=== PATIENT | female | born 1940 | race Caucasian/White ===

== ENCOUNTER 2020-01-25 09:21 | Inpatient (IN) | payer OTHER, MEDICAID ==
[~2020-01-25] VITALS: Ht 160 cm; Wt 51.3 kg
[2020-01-25] MEDS ORDERED: DULCOLAX STOOL100 M1 PO (09:31)
[2020-01-25] MEDS ORDERED: ARICEPT10 M1 PO (09:31)
[2020-01-25] MEDS ORDERED: ATIVAN0.5 M1 PO (09:31)
[2020-01-25] MEDS ORDERED: NORVASC5 M1 PO (09:31)
[2020-01-25] MEDS ORDERED: MILK OF MA400 MG/5 M PO (09:32)
[2020-01-25] MEDS ORDERED: MEMANTINE HCL E28 MG PO (09:32)
[2020-01-25] MEDS ORDERED: OLANZAPINE ODT5 MG PO (09:33)
[2020-01-25] MEDS ORDERED: TYLENOL325 M1 PO (09:34)
[2020-01-25] MEDS ORDERED: MELATONIN3 M1 PO (09:34)
[2020-01-25 09:58] LABS: ABSOLUTE EOSINOPHILS 0.2 thou/uL (0.0-0.7); ABSOLUTE LYMPHOCYTES 1.3 thou/uL (0.8-5.3); ABSOLUTE MONOCYTES 0.6 thou/uL (0.0-1.2); ABSOLUTE NEUTROPHILS 4.4 thou/uL (1.6-8.1); BASOPHILS 0.4 %; EOSINOPHILS 3.3 %; HEMOGLOBIN 12.7 gm/dL (12.0-15.0); LYMPHOCYTES 19.9 %; MCH 29.7 pg (26.0-34.0); MCHC 34.3 g/dL (28.0-37.0); MCV 86.8 fL (80.0-100.0); MONOCYTES 8.7 %; MPV 7.8 fl. (7.2-11.1); NUCLEATED RBCS 0 /100WBC; PLATELET COUNT* 219 thou/uL (150-400); POLYS 67.7 %; RBC 4.26 mil/uL (4.20-5.00); RDW-CV 13.8 % (10.5-14.5); WBC 6.5 thou/uL (4.0-11.0)
[2020-01-25 10:00] LABS: CALCIUM 8.5 mg/dL (8.5-10.1); POTASSIUM 3.9 mmol/L (3.5-5.1)
[2020-01-25 10:01] LABS: PROTIME 10.4 Seconds (9.20-11.50)
[2020-01-25 10:06] LABS: ALBUMIN 3.1 g/dL (3.4-5.0); TOTAL BILIRUBIN 0.4 mg/dL (<0.1-1.0); TOTAL PROTEIN 7.1 g/dL (6.4-8.2)
[2020-01-25 10:07] LABS: URINE BILIRUBIN NEGATIVE (Negative); URINE BLOOD 3+ (Negative); URINE CLARITY CLEAR; URINE COLOR YELLOW; URINE GLUCOSE-RANDOM NEGATIVE (Negative); URINE KETONES NEGATIVE (Negative); URINE LEUKOCYTES-REFLEX TRACE (Negative); URINE NITRITE-REFLEX POSITIVE (Negative); URINE PROTEIN NEGATIVE (Negative); URINE SPECIFIC GRAVITY 1.015 (1.005-1.030); URINE UROBILINOGEN 0.2 E.U./dl (0.2-1.0)
[2020-01-25 10:13] LABS: SQUAMOUS 0-3 Few /LPF (0-3); URINE RBC 0-2 Rare /HPF (0-2); URINE WBC-REFLEX 6-15 Few /HPF (0-5)
[2020-01-25 10:14] LABS: BACTERIA-REFLEX >30 Many /HPF (None Seen); CASTS None Seen /LPF (None Seen); CRYSTALS None Seen /LPF (None Seen); MUCUS 0-3 Light strn/LPF (None Seen)
[2020-01-25 12:27] VITALS: BP 160/70
[2020-01-25 12:45] VITALS: BP 141/48
--- NOTE | 2020-01-25 16:05 | EKG ---
[place] [address] ELECTROCARDIOGRAM REPORT Name: SILVIO MCCAINLEE Room: [address] ADM IN M.R.#: [id number] Admission: 01/25/20 Attend Phys: Trey Antoine, Discharge: Date of : 36 Date of Service: 01/25/20 0933 Report #: [id number] THIS REPORT FOR: //name// [facility] ED Test Date: 2020-01-25 Test Time: 09:33:32 Pat Name: NIXON MCCAIN Department: Room: [facility] Gender: F Video And Sound Recorder: DSL : 1940 Requested By: Brody Wilhelm Order Number: [id number] MD: Tacho Smith Measurements Intervals [place] Rate: 89 P: 43 WA: 161 QRS: -41 QRSD: 83 T: 52 QT: 378 QTc: 460 Interpretive Statements Sinus rhythm Left axis deviation Anteroseptal infarct, age indeterminate possible No previous ECG available for comparison Electronically Signed On 01-25-2020 16:05:30 CDT by Tacho Smith [email or web address] <ELECTRONICALLY SIGNED> By: Tacho Smith MD, [facility] 01/25/20 1605 0933 0933 Tacho Smith MD, [facility] /EPI
[2020-01-25 16:26] VITALS: BP 143/68
[2020-01-25 20:00] VITALS: BP 129/60
[2020-01-26] VITALS: BP 109/64
[2020-01-26 04:00] VITALS: BP 96/47
[2020-01-26] MEDS ORDERED: BISACODYL10 MG RECTAL (04:58)
[2020-01-26] MEDS ORDERED: PROCTOSOL-HC28.35 GM TOP (05:00)
[2020-01-26 05:59] LABS: ABSOLUTE EOSINOPHILS 0.1 thou/uL (0.0-0.7); ABSOLUTE LYMPHOCYTES 1.1 thou/uL (0.8-5.3); ABSOLUTE MONOCYTES 0.6 thou/uL (0.0-1.2); ABSOLUTE NEUTROPHILS 3.2 thou/uL (1.6-8.1); BASOPHILS 0.5 %; EOSINOPHILS 2.5 %; HEMATOCRIT 37.9 % (37.0-47.0); LYMPHOCYTES 22.5 %; MCH 29.4 pg (26.0-34.0); MCHC 34.2 g/dL (28.0-37.0); MCV 85.9 fL (80.0-100.0); MONOCYTES 11.1 %; MPV 8.1 fl. (7.2-11.1); NUCLEATED RBCS 0 /100WBC; PLATELET COUNT* 235 thou/uL (150-400); POLYS 63.4 %; RBC 4.41 mil/uL (4.20-5.00)
[2020-01-26 06:09] LABS: CALCIUM 8.6 mg/dL (8.5-10.1); CREATININE 1.1 mg/dL (0.6-1.3); POTASSIUM 4.1 mmol/L (3.5-5.1)
[2020-01-26 08:00] VITALS: BP 106/41
[2020-01-26 12:14] VITALS: BP 105/55
[2020-01-26 16:07] VITALS: BP 119/69
[2020-01-27] VITALS: BP 104/48
[2020-01-27 04:00] VITALS: BP 108/37
[2020-01-27 04:59] LABS: CALCIUM 8.6 mg/dL (8.5-10.1); CREATININE 1.1 mg/dL (0.6-1.3); MAGNESIUM 2.5 mg/dL (1.8-2.4); PHOSPHORUS* 4.3 mg/dL (2.5-4.9); POTASSIUM 3.6 mmol/L (3.5-5.1)
[2020-01-27 08:00] VITALS: BP 111/43
[2020-01-27 12:54] VITALS: BP 140/57
[2020-01-27 17:02] VITALS: BP 139/53
[2020-01-27 20:30] VITALS: BP 118/48
[2020-01-28] VITALS: BP 138/63
[2020-01-28 04:00] VITALS: BP 146/49
[2020-01-28 04:52] LABS: ABSOLUTE EOSINOPHILS 0.1 thou/uL (0.0-0.7); ABSOLUTE LYMPHOCYTES 1.6 thou/uL (0.8-5.3); ABSOLUTE MONOCYTES 0.5 thou/uL (0.0-1.2); ABSOLUTE NEUTROPHILS 3.1 thou/uL (1.6-8.1); BASOPHILS 0.5 %; EOSINOPHILS 2.3 %; HEMATOCRIT 38.8 % (37.0-47.0); HEMOGLOBIN 13.1 gm/dL (12.0-15.0); LYMPHOCYTES 29.5 %; MCH 29.3 pg (26.0-34.0); MCHC 33.7 g/dL (28.0-37.0); MONOCYTES 8.9 %; MPV 8.2 fl. (7.2-11.1); NUCLEATED RBCS 0 /100WBC; PLATELET COUNT* 261 thou/uL (150-400); POLYS 58.8 %; RBC 4.46 mil/uL (4.20-5.00); RDW-CV 13.5 % (10.5-14.5); WBC 5.3 thou/uL (4.0-11.0)
[2020-01-28 05:07] LABS: ALBUMIN 3.2 g/dL (3.4-5.0); CALCIUM 8.8 mg/dL (8.5-10.1); CALCIUM 8.9 mg/dL (8.5-10.1); CREATININE 0.9 mg/dL (0.6-1.3); MAGNESIUM 2.3 mg/dL (1.8-2.4); PHOSPHORUS* 3.3 mg/dL (2.5-4.9); POTASSIUM 3.8 mmol/L (3.5-5.1); POTASSIUM 3.9 mmol/L (3.5-5.1); TOTAL BILIRUBIN 0.5 mg/dL (<0.1-1.0); TOTAL PROTEIN 7.3 g/dL (6.4-8.2)
[2020-01-28 08:00] VITALS: BP 136/56
[2020-01-28 16:45] VITALS: BP 134/61
[2020-01-28 22:00] VITALS: BP 138/43
[2020-01-29 04:00] VITALS: BP 113/49
[2020-01-29 08:00] VITALS: BP 138/47
[2020-01-29 12:00] VITALS: BP 144/53
[2020-01-29] MEDS ORDERED: CEFUROXIME250 MG PO (12:29)
--- NOTE | 2020-01-29 12:56 | EKG ---
[place] [address] ELECTROCARDIOGRAM REPORT Name: NIXON MCCAIN Room: [address] ADM IN M.R.#: [id number] Admission: 01/25/20 Attend Phys: Trey Antoine, Discharge: Date of : 36 Date of Service: 01/28/20 1532 Report #: [id number] THIS REPORT FOR: //name// [facility] Test Date: 2020-01-28 Test Time: 15:32:46 Pat Name: NIXON MCCAIN Department: Room: [address] Gender: F Tray Packer: : 1940 Requested By: Amber Dawson Order Number: [id number] Arlene MD: Randy Jose Measurements Intervals [place] Rate: 91 P: 11 AL: 130 QRS: -41 QRSD: 96 T: 74 QT: 371 QTc: 457 Interpretive Statements Sinus rhythm artifact noted Ventricular premature complex Left axis deviation Abnormal R-wave progression, early transition Borderline T wave abnormalities Compared to ECG 01/25/2020 09:33:32 Ventricular premature complex(es) now present Electronically Signed On 01-29-2020 12:56:27 CDT by Randy Jose [email or web address] <ELECTRONICALLY SIGNED> By: Randy Jose MD, [facility] 01/29/20 1256 1532 1532 Randy Jose MD, [facility] /EPI
[2020-01-29 14:13] VITALS: BP 144/53
--- NOTE | 2020-01-31 12:06 | PATH ---
[address] [address] PATHOLOGY RPT PROCEDURE Name: NIXON HINDS Room: [address] IN M.R.#: [id number] Admission: 01/25/20 Date of : 36 Discharge: 01/29/20 Report #: [id number] Path Case #: [id number] [facility] Accession Number: [id number] . 01 Material submitted: . rectum - BIOPSY OF RECTAL MASS AT 10CM . 01 Clinician provided ICD-10: K92.2 G93.41 . 02 Diagnosis: Biopsy of rectal mass at 10 cm: - Tubular adenoma, negative for high grade dysplasia. See comment. LBQ 01/30/2020 1546 Local . 02 Comment: Reviewed with Dr. Shameka Corado who agrees with the diagnosis. (FIONA/db; 01/30/2020) . 02 Electronically signed: . Eliseo Hall MD, Pathologist NPI- [id number] . 01 Gross description: . The specimen is received in formalin, labeled "Nixon Hinds, biopsy of rectal mass at 10 cm" and consists of multiple fragments of schneider tissue measuring 1.4 x 0.5 x 0.2 cm in aggregate which are entirely submitted in A1. ([facility]; 01/29/2020) JFQ/JFQ 01/29/20207 Local . 02 Pathologist provided ICD-10: D12.8 . 02 CPT . 675152 Specimen Comment: A courtesy copy of this report has been sent to [phone] Specimen Comment: [phone], Specimen Comment: Report sent to ,DR MCLEOD / DR CARRILLO Performed at: [address] [id number] MD David Dietz MD Phone: [phone] Performed at: 02 [facility] [address] [place], [place] [id number] [place] [address] PATHOLOGY RPT PROCEDURE Name: NIXON HINDS Room: [address] IN M.R.#: [id number] Admission: 01/25/20 Date of : 36 Discharge: 01/29/20 Report #: [id number] Path Case #: [id number] MD Eliseo Hall MD Phone: [phone]
--- NOTE | 2020-02-04 15:15 | CON ---
[address] [address] CONSULTATION Name: KALYNNIXON Room: [address] IN M.R.#: [id number] Admission: 01/25/20 Attend Phys: Trey Antoine MD Discharge: 01/29/20 Date of : 36 Report #: [id number] THIS REPORT FOR: //name// cc: Suzan Vincent MD, Malathi MD THIS REPORT FOR: //name// CC: Trey Vincent MD [facility] DATE OF SERVICE: 01/26/2020 REFERRING PHYSICIAN: Trey Antoine MD REASON FOR CONSULTATION: Rectal bleeding. IMPRESSION: 1. Rectal bleeding of uncertain etiology. 2. Severe dementia with the patient being very uncooperative with everything. RECOMMENDATIONS: Before proceeding with any type of intervention, I will need to speak with the patient's daughter/durable power of commercial litigation attorney, Chacha Dee over the phone to determine what we can do at this time. I suspect that the patient will not be cooperative with any type of bowel preparation and with the severity of her dementia, I doubt that she would even allow anyone to do any enemas. We may need to try and do an unprepped flexible sigmoidoscopy just to see what is going on within the rectum due to abnormal CAT scan findings. I will talk with the patient's daughter and make further recommendations during the hospital course. HISTORY OF PRESENT ILLNESS: The patient is an 79-year-old white female, resident of [facility] who was brought to the Emergency Room because of problems with some bright red bleeding. The patient has severe dementia and she cannot give any history whatsoever. I also talked to her daughter, and has not been any history of any problems like this in the past. She is unclear as to whether or not her mom has ever had any colonoscopies in the past, but is not any history of any issues that have been of concern. The patient has good days and bad days with regards to her level of alertness and cooperation. She is admitted to the hospital for further evaluation and treatment. [place] [address] CONSULTATION Name: NIXON MCCAIN Room: [address] IN [facility].#: [id number] Admission: 01/25/20 Attend Phys: Trey Antoine MD Discharge: 01/29/20 Date of : 36 Report #: [id number] MEDICATIONS: Amlodipine, docusate, Aricept, Ativan, memantine, milk of magnesia, olanzapine, and melatonin. PAST MEDICAL HISTORY: Remarkable for hypertension, severe dementia. SOCIAL HISTORY: Not known. PHYSICAL EXAMINATION: GENERAL: Revealed an 79-year-old white female who is awake, but cannot answer questions reliably. CARDIOPULMONARY: Revealed a regular rate and rhythm. LUNGS: Clear. ABDOMEN: Soft and not tender. No rebound or guarding noted. LABORATORY DATA: From admission on the revealed white count of 6.5, hemoglobin 12.7, platelet count 219,000. Her MCV is 86.8 and RDW 13.8. Today when I saw her hemoglobin dropped it was basically same at 13.0. Her sodium 142, potassium 4.1, chloride 107, bicarbonate 26, BUN 22, creatinine 1.1, GFR is 48. Total bilirubin 0.4, alkaline phosphatase is 139, AST 19, ALT 19. CT scan of the abdomen and pelvis was performed with just IV contrast only. Liver, gallbladder, spleen, pancreas, adrenal glands, kidneys are all normal. There appeared to be a mass visualized within the rectum at the level of the rectosigmoid junction without active contrast extravasation, but with the recommendation to proceed with colonoscopy. DISCUSSION: At the present time, the patient is a terrible historian with her dementia. We can do to help figure out what is going on within the rectal bleeding and make further recommendations thereafter. <ELECTRONICALLY SIGNED> By: Matt Roldan DO 02/04/201514 42 50Matt Roldan DO /nt
== END 2020-01-29 15:00 | DRG 393 ==
LOC: M.ERS 09:21 → M.2W 10:00 → M.TBA-ER 10:00 → M.2W 12:46
PROVIDERS: Family Medicine; Internal Medicine Gastroenterology; ADMIT Internal Medicine; ATTEND Internal Medicine
PROC: 0DBP8ZX Excision of Rectum, Via Natural or Artificial Opening Endoscopic, Diagnostic (ICD-10-PCS; principal; 2020-01-29)
DX: D12.8 Benign neoplasm of rectum (principal); G93.41 Metabolic encephalopathy; R65.11 Systemic inflammatory response syndrome (SIRS) of non-infectious origin with acute organ dysfunction; K92.1 Melena; N39.0 Urinary tract infection, site not specified; E44.1 Mild protein-calorie malnutrition; B96.20 Unspecified Escherichia coli [E. coli] as the cause of diseases classified elsewhere; I10 Essential (primary) hypertension; F03.90 Unspecified dementia, unspecified severity, without behavioral disturbance, psychotic disturbance, mood disturbance, and anxiety; K64.9 Unspecified hemorrhoids; Z66 Do not resuscitate; Z79.899 Other long term (current) drug therapy; Z68.20 Body mass index [BMI] 20.0-20.9, adult; Z03.818 Encounter for observation for suspected exposure to other biological agents ruled out